=== PATIENT | male | born 1985 | race Caucasian/White ===

== ENCOUNTER 2021-01-03 00:25 | Emergency (ER) | payer BC, SELFPAY ==
--- NOTE | 2021-01-03 00:31 | ECG_ITS ---
Measurements Intervals [place] Rate: 80 P: 51 VT: 145 QRS: 10 QRSD: 105 T: 16 QT: 398 QTc: 459 Interpretive Statements SINUS RHYTHM INCOMPLETE RIGHT BUNDLE BRANCH BLOCK BASELINE ARTIFACT- III, V1-V2, V5 BORDERLINE ECG Electronically Signed On 01-03-2021 5:54:26 PREFITTER by Lalo Moreland D.O.
[2021-01-03 00:37] VITALS: BP 127/76; PULSE 82; RESP 18; TEMP 36.5; O2SAT 100
[2021-01-03] MEDS: SODIUM CHLORIDE 0.9% IV 1,000 ML 999 ML IV CONT (00:47)
[2021-01-03 01:06] LABS: Basophils Absolute Auto 0.1 K/mm3 (0.0-0.1); Basophils Percent Auto 0.9 % (0.2-1.2); Eosinophils Absolute Auto 0.1 K/mm3 (0-0.3); Eosinophils Percent Auto 1.5 % (0-4.4); Hematocrit 43.5 % (42.0-52.0); Immature Granulocyte Absolute 0.02 K/mm3 (0.00-0.031); Immature Granulocyte Percent A 0.3 % (0-0.5); Lymphocytes Absolute Auto 1.79 K/mm3 (0.9-3.2); Lymphocytes Percent Auto 30.5 % (18.3-44.2); Mean Corpuscular HGB Conc 34.5 g/dl (32-36); Mean Corpuscular Hemoglobin 31.5 pg (26-34); Mean Corpuscular Volume 91.4 fl (80-100); Mean Platelet Volume 10.2 fl (7.4-10.4); Monocytes Absolute Auto 0.5 K/mm3 (0.1-0.6); Monocytes Percent Auto 8.5 % (2.6-8.5); Neutrophils Absolute Auto 3.4 K/mm3 (1.3-6.7); Neutrophils Percent Auto 58.3 % (45.5-73.1); Platelet Count Result 174 k/mm3 (150-375); Red Blood Count 4.76 M/mm3 (4.6-6.20); Red Cell Distribution Width 12.1 % (11.5-14.5); White Blood Count 5.9 K/mm3 (4.5-10.0)
[2021-01-03 01:20] LABS: Ethanol 247 mg/dL (<10)
[2021-01-03 01:22] LABS: Alanine Aminotransferase 29 U/L (4-50); Albumin Level 4.5 g/dL (3.5-5.1); Alkaline Phosphatase 84 U/L (38-126); Anion Gap 10 mmol/L (8-16); Aspartate Amino Transferase 35 U/L (17-59); Bilirubin,Total 0.2 mg/dL (0.2-1.3); Blood Urea Nitrogen 14 mg/dL (9-20); Calcium 8.3 mg/dL (8.4-10.2); Carbon Dioxide 27 mmol/L (22-30); Chloride 105 mmol/L (98-107); Estimated CRCL calculation 114 ml/min; Estimated Glomerular Filt Rate > 60; Glucose 105 mg/dL (65-110); Magnesium 2.2 mg/dL (1.6-2.3); Potassium 3.8 mmol/L (3.4-5.0); Sodium 142 mmol/L (137-145)
[2021-01-03 01:23] LABS: Lactic Acid Reflex 1.7 mmol/L (0.7-2.1)
--- NOTE | 2021-01-03 02:04 | ED.GENADULT ---
HPI - General Adult General Chief complaint: Unspecified Stated complaint: etoh Time Seen by Provider: 01/03/21 00:31 History of Present Illness HPI narrative: Patient is a 35-year-old gentleman who presents the emergency department with chief complaint of altered mental status. The patient reports he had been up or taking this evening and some drinking and celebrating the birthday of the brain court. Patient states that he was driving his vehicle and was pulled over and the police given the option to be transported to the emergency department for evaluation upon initial presentation to the emergency department the patient was initially minimally responsive at a GCS of 9. Upon noxious stimuli the patient proceeded to wake and was able to answer questions. Patient denies suicidal or homicidal ideation reports that he had just been drinking this evening denies any other illicit drug use. Related Data Allergies Allergy/AdvReac Type Severity Reaction Status Date / Time No Known Allergies Allergy Unverified 10/19/19 14:08 Review of Systems Review of Systems: A 10 system review of systems was completed on the patient and is negative except for what is stated in the HPI. Nursing and ancillary documentation was reviewed. [facility] Social History Social History Smoking status: Former smoker Smoking end date: 02/23/01 Alcohol intake: current Exam Narrative: GENERAL: Well-appearing, well-nourished, and in no acute distress. HEAD: Normocephalic, atraumatic. EYES: PERRLA and EOMI. ENT: Nares clear, no rhinorrhea or epistaxis. Mucous membranes moist. NECK: Supple. CHEST: Clear to auscultation. No respiratory distress. HEART: Regular rate and rhythm. No murmur heard. Normal peripheral pulses. ABDOMEN: Soft, nontender, nondistended, normal active bowel sounds. EXTREMITIES: Normal range of motion. No edema. SKIN: Warm, dry, no rash. NEURO: No focal deficits. Alert and oriented x3. PSYCH: Normal mood and affect. Course Vital Signs Vital signs: Vital Signs Temperature 36.5 C 01/03/21 00:37 Pulse Rate 82 01/03/21 00:37 Respiratory Rate 18 01/03/21 00:37 Blood Pressure 127/76 01/03/21 00:37 Pulse Oximetry 100 01/03/21 00:37 Temperature 36.5 C 01/03/21 00:37 Pulse Rate 82 01/03/21 00:37 Respiratory Rate 18 01/03/21 00:37 Blood Pressure 127/76 01/03/21 00:37 Pulse Oximetry 100 01/03/21 00:37 Medical Decision Making Vital Signs Vital Signs: Vital Signs Temperature 36.5 C 01/03/21 00:37 Pulse Rate 82 01/03/21 00:37 Respiratory Rate 18 01/03/21 00:37 Blood Pressure 127/76 01/03/21 00:37 Pulse Oximetry 100 01/03/21 00:37 Temperature 36.5 C 01/03/21 00:37 Pulse Rate 82 01/03/21 00:37 Respiratory Rate 18 01/03/21 00:37 Blood Pressure 127/76 01/03/21 00:37 Pulse Oximetry 100 01/03/21 00:37 Lab Data Result diagrams: 01/03/21 00:49 01/03/21 00:49 Labs: Lab Results 01/03/21 01/03/21 01/03/21 Range/Units 00:49 00:49 00:49 WBC 5.9 (4.5-10.0) K/mm3 RBC 4.76 (4.6-6.20) M/mm3 Hgb 15.0 (14.0-18.0) g/dL Hct 43.5 (42.0-52.0) % MCV 91.4 (80-100) fl MCH 31.5 (26-34) pg MCHC 34.5 (32-36) g/dl RDW 12.1 (11.5-14.5) % Plt Count 174 (150-375) k/mm3 MPV 10.2 (7.4-10.4) fl Immature Gran % (Auto) 0.3 (0-0.5) % Neut % (Auto) 58.3 (45.5-73.1) % Lymph % (Auto) 30.5 (18.3-44.2) % Bucks % (Auto) 8.5 (2.6-8.5) % Eos % (Auto) 1.5 (0-4.4) % Baso % (Auto) 0.9 (0.2-1.2) % Lymph # (Auto) 1.79 (0.9-3.2) K/mm3 Bucks # (Auto) 0.5 (0.1-0.6) K/mm3 Eos # (Auto) 0.1 (0-0.3) K/mm3 Baso # (Auto) 0.1 (0.0-0.1) K/mm3 Abs Immat Gran (auto) 0.02 (0.00-0.031) K/mm3 Absolute Neuts (auto) 3.4 (1.3-6.7) K/mm3 Absolute Nucleated RBC 0.0 (0.0-0.012) K/mm3 Nucleated RBC % 0.0 (0
[2021-01-03 02:45] VITALS: PULSE 70; RESP 14; O2SAT 100
--- NOTE | 2021-01-14 13:23 | PC.NURSE ---
LATE ENTRY This note is being entered to document information to the patient's record. The following information was omitted on [01/03/21], by [Murali Selby]. Ns stop time is 0145, 1000ml infused
== END 2021-01-03 02:45 | disposition home or self-care (01) ==
PROVIDERS: Emergency Provider Emergency Medicine
DX: F10.920 Alcohol use, unspecified with intoxication, uncomplicated (principal); Z87.891 Personal history of nicotine dependence; Y90.8 Blood alcohol level of 240 mg/100 ml or more
CPT/HCPCS: 36415; 80053; 80307; 83605; 83735; 85025; 93005; 96360; 99283; J7030